=== PATIENT | male | born 1965 | race Caucasian/White ===

== ENCOUNTER → 2018-08-19 | Outpatient (CLI) | payer OTHER | LOC: CAT 08:19 | DX: Z13.6 Encounter for screening for cardiovascular disorders (principal); E78.00 Pure hypercholesterolemia, unspecified; I25.10 Atherosclerotic heart disease of native coronary artery without angina pectoris ==

== ENCOUNTER → 2018-08-19 | Outpatient (CLI) | payer OTHER | LOC: RAD 08:11 | DX: M53.3 Sacrococcygeal disorders, not elsewhere classified (principal) ==